=== PATIENT | male | born 1995 | race African-American/Black ===

== ENCOUNTER 2017-02-02 20:10 | Emergency (ER) | payer OTHER, BC ==
[~2017-02-02] VITALS: Ht 170.2 cm; Wt 70.0 kg
[~2017-02-02 20:10] MED LIST: AZIT500T2 PO; BENZ100 PO
[2017-02-02 20:23] VITALS: BP 127/76; PULSE 82; RESP 18; TEMP 98.7; O2SAT 98
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
== END 2017-02-02 22:16 | disposition home or self-care (01) ==
LOC: NEPD 20:10
DX: R51 Headache (principal); M54.2 Cervicalgia; V49.40XA Driver injured in collision with unspecified motor vehicles in traffic accident, initial encounter
CPT/HCPCS: 70450; 72125